=== PATIENT | male | born 1995 | race Caucasian/White ===

== ENCOUNTER 2017-05-13 14:01 | Emergency (ER) | payer SELFPAY ==
[~2017-05-13] VITALS: Ht 185.4 cm; Wt 66.0 kg
[2017-05-13 14:04] VITALS: Ht 185.4 cm; Wt 66.0 kg
--- NOTE | 2017-05-13 14:39 | ERD ---
ER Documentation Chief Complaint Date/Time DATE: 05/13/17 TIME: 14:37 Chief Complaint [facility] STAFF FOR [facility] MIRANDA BOYD This is a 22-year-old male who presents from detox center with staff for possible psychosis. The patient has checked in to the detox center for alcohol abuse issues over the past 24-48 hours. It appears that just prior to arrival the patient was acting paranoid and possibly delusional. The facility was concerned and brought to the emergency room for evaluation. The patient states that he thought he heard female voices on the television. He states that they were not talking to him but he may have thought that 1 of the voices was a family member. He states that he is not hearing voices he is not hearing voices telling him to hurt himself. He denies any suicidal or homicidal thoughts. He states that he uses alcohol last use was several days ago. He denies any other drug abuse. No hospitalizations for psychosis and no psychiatric diagnosis other than depression. ROS All systems reviewed and are negative except as per history of present illness. FmHx Family History: No diabetes Physical Exam Vitals Vital Signs Date Time Temp Pulse Resp B/P Pulse Ox O2 Delivery O2 Flow Rate FiO2 05/13/17 14:04 98.2 112 18 151/98 98 Physical Exam General: Well developed, well nourished, no acute distress Head: Normocephalic, atraumatic. Eyes: Pupils equally reactive, EOM intact ENT: Moist mucous membranes Neck: Supple, no lymphadenopathy Respiratory: Lungs clear bilaterally, no distress Cardiovascular: RRR, no murmurs, rubs, or gallops Abdominal: Soft, non-tender, non-distended, no peritoneal signs : Deferred MSK: No edema, no unilateral swelling, 5/5 strength Neurologic: Alert and oriented, moving all extremities, normal speech, no focal weakness, no cerebellar signs Skin: No rash Psych: Flattened affect, no suicidal homicidal thoughts, no auditory or visual hallucinations Procedures/MDM I had a prolonged conversation with the patient and evaluated the patient. While he does have a flat affect the patient has no evidence of acute psychosis. He does not appear to be a danger to himself or others. Additionally, the nurse and myself had a prolonged conversation with the detox center staff. The staff member states that the patient was delusional and had delusions of persecution but these are dramatically improved at present. She states that the patient is back to baseline. She feels comfortable taking the patient back to the detox center and the patient wishes to go back to the detox center. The patient does not appear to be a danger to himself or others. The staff member also feels comfortable managing the patient. I did discuss return precautions for any exacerbation of symptoms including agitation, aggressive behavior or suicidal thoughts. The patient has no evidence of emergent medical condition no evidence of overt alcohol withdrawal, acute psychosis. I believe the patient can be safely discharged Departure Diagnosis: Primary Impression: Encounter for medical screening examination Condition: Stable Referrals: [facility] YOU HAVE RECEIVED A MEDICAL SCREENING EXAM AND THE RESULTS INDICATE THAT YOU DO NOT HAVE A CONDITION THAT REQUIRES URGENT TREATMENT IN THE EMERGENCY DEPARTMENT. FURTHER EVALUATION AND TREATMENT OF YOUR CONDITION CAN WAIT UNTIL YOU ARE SEEN IN YOUR DOCTORS OFFICE WITHIN THE NEXT 1-2 DAYS. IT IS YOUR RESPONSIBILITY TO MAKE AN APPOINTMENT FOR FOLOW-UP CARE. IF YOU HAVE A PRIMARY DOCTOR --you should call your primary doctor and schedule an appointment IF YOU DO NOT HAVE A PRIMARY DOCTOR YOU CAN CALL OUR PHYSICIAN REFERRAL HOTLINE AT IF YOU CAN NOT AFFORD TO SEE A PHYSICIAN YOU CAN CHOSE FROM THE FOLLOWING [facility] [address] [facility]. [facility] [address] [facility]. [facility] [address] [facility] [facility] [address] [facility] [facility] [address] [facility]. [facility]. [address] [facility]. [facility] YOU HAVE RECEIVED A MEDICAL SCREENING EXAM AND THE RESULTS INDICATE THAT YOU DO NOT HAVE A CONDITION THAT REQUIRES URGENT TREATMENT IN THE EMERGENCY DEPARTMENT. FURTHER EVALUATION AND TREATMENT OF YOUR CONDITION CAN WAIT UNTIL YOU ARE SEEN IN YOUR DOCTORS OFFICE WITHIN THE NEXT 1-2 DAYS. IT IS YOUR RESPONSIBILITY TO MAKE AN APPOINTMENT FOR FOLOW-UP CARE. IF YOU HAVE A PRIMARY DOCTOR --you should call your primary doctor and schedule and appointment IF YOU DO NOT HAVE A PRIMARY DOCTOR YOU CAN CALL OUR PHYSICIAN REFERRAL HOTLINE AT . IF YOU CAN NOT AFFORD TO SEE A PHYSICIAN YOU CAN CHOSE FROM THE FOLLOWING [facility] INSTITUTIONS: [facility] [address] [place] [address] [facility] [address] [place] [address] [facility] [address] [place] [address] Additional Instructions: Call your primary care doctor TOMORROW for an appointment during the next 1 WEEK.Tell the alumni secretary that you were referred from this facility.See the doctor sooner or return here if your condition worsens before your appointment time. TRISTON MARROQUIN MD May 13, 2017 14:39
== END 2017-05-13 14:39 | disposition home or self-care (01) ==
LOC: E/R 14:01
DX: Z00.8 Encounter for other general examination (principal)
CPT/HCPCS: 99282